=== PATIENT | male | born 1950 | race Caucasian/White ===

== ENCOUNTER 2017-05-24 06:09 | Day surgery (SDC) | payer MEDICARE, OTHER ==
[~2017-05-24] VITALS: Ht 172.7 cm; Wt 92.4 kg
[2017-05-24] MEDS ORDERED: JANUMXR1000-50 PO (06:20)
[2017-05-24] MEDS ORDERED: ZESTORETIC 12.51 TAB PO (06:21)
[2017-05-24 06:49] VITALS: BP 166/88; PULSE 68; TEMP 97.7
[2017-05-24 07:35] VITALS: BP 143/79; PULSE 67
[2017-05-24 07:45] VITALS: BP 132/79; PULSE 68
[2017-05-24 08:00] VITALS: BP 127/70; PULSE 63
== END 2017-05-24 08:15 | disposition home or self-care (01) ==
LOC: SDCO 06:09
DX: K64.4 Residual hemorrhoidal skin tags (principal); K62.89 Other specified diseases of anus and rectum; R03.0 Elevated blood-pressure reading, without diagnosis of hypertension
CPT/HCPCS: J2250; J2405; J3010; J7030

== ENCOUNTER 2017-06-04 05:34 | Day surgery (SDC) | payer MEDICARE, OTHER ==
[~2017-06-04] VITALS: Ht 172.7 cm; Wt 91.9 kg
[~2017-06-04 05:34] MED LIST: JANUMXR1000-50 PO; ZESTORETIC 12.51 TAB PO
[2017-06-04 06:16] VITALS: BP 157/81; PULSE 71; TEMP 97.6
[2017-06-04 08:13] VITALS: BP 126/66; PULSE 68; TEMP 98.3
[2017-06-04] MEDS ORDERED: MOTRIN 600600 MG/TAB PO (08:28)
[2017-06-04] MEDS ORDERED: PERCOCET 325 MG1 TA2 PO (08:28)
[2017-06-04] MEDS ORDERED: COLACE 100100 MG/CAP PO (08:28)
[2017-06-04] MEDS ORDERED: GOOD NEIGH3.4 GM/Dos PO (08:29)
[2017-06-04 08:30] VITALS: BP 135/69; PULSE 65
[2017-06-04 08:45] VITALS: BP 127/64; PULSE 61
[2017-06-04 09:00] VITALS: BP 131/63; PULSE 60
== END 2017-06-04 09:20 | disposition home or self-care (01) ==
LOC: SDCO 05:34
DX: K64.4 Residual hemorrhoidal skin tags (principal); E11.9 Type 2 diabetes mellitus without complications; I10 Essential (primary) hypertension
CPT/HCPCS: J2704; J2765; J3010; J7030